=== PATIENT | male | born 2000 | race African-American/Black ===

== ENCOUNTER 2024-07-27 03:53 | Emergency (ER) | payer MEDICAID ==
[~2024-07-27] VITALS: Ht 172.7 cm; Wt 113.5 kg
[2024-07-27 04:02] VITALS: O2SAT 99
[2024-07-27 04:08] VITALS: TEMP 37.00296; O2SAT 99
[2024-07-27 06:06] VITALS: TEMP 98.6
[2024-07-27] MEDS: ACETAMINOPHEN 325MG TABLET PO ONE (06:06)
[2024-07-27 06:42] LABS: CLARITY URINE CLEAR (CLEAR); COLOR URINE YELLOW (YELLOW); GLUCOSE URINE NEGATIVE (NEGATIVE); KETONES URINE NEGATIVE (NEGATIVE); LEUKOCYTE ESTERASE URINE NEGATIVE (NEGATIVE); NITRITE URINE NEGATIVE (NEGATIVE); OCCULT BLOOD URINE NEGATIVE (NEGATIVE); PH URINE 5.5 (4.5-8.0); PROTEIN URINE 1+ (NEGATIVE); SPECIFIC GRAVITY URINE 1.034 (1.005-1.030)
[2024-07-27] MEDS ORDERED: ACET-2708 MT (06:44)
[2024-07-27 07:06] LABS: RBC URINE NONE SEEN /hpf (0-2)
[2024-07-27 07:07] LABS: BACTERIA URINE FEW; SQUAMOUS EPITHELIAL CELL URINE RARE /lpf (RARE/1+); YEAST URINE NONE SEEN
[2024-07-27] MEDS: SODIUM CHLORIDE 0.9% 1,000 ML IV ONE (07:12)
[2024-07-27 07:28] VITALS: BP 131/99; PULSE 100; RESP 18
[2024-07-27] MEDS: METOCLOPRAMIDE HCL 10MG/2ML VIAL IV ONE (07:28)
[2024-07-27] MEDS: KETOROLAC 30MG/ML VIAL IV ONE (07:28)
== END 2024-07-27 09:23 | disposition home or self-care (01) ==
LOC: ER 03:53
DX: G43.909 Migraine, unspecified, not intractable, without status migrainosus (principal)
CPT/HCPCS: 81003; 96361; 96374; 96375; 99284; J1885; J2765; J7030; Z7610 ×2